=== PATIENT | male | born 1955 | race Caucasian/White ===

== ENCOUNTER 2016-07-07 07:02 | Day surgery (SDC) | payer OTHER ==
[~2016-07-07] VITALS: Ht 175.3 cm; Wt 86.2 kg
[~2016-07-07 07:02] MED LIST: ADULT LOW DOSE81 M1 PO; ALREX 0.2%100 DROP/5 BOTH EYES; Ascorbic Acid,Ester- PO; Aspirin Chewable PO; Bactrim,Septra DS 80 PO; Dulcolax PO; ENDOCET 5-3251 EACH PO; GABAPENTIN300 MG PO; KENALOG,ARISTOC80 GM TP; LEVO-T75 MCG PO; LISINOPRIL-HCT1 EAC3 PO; LOPRESSOR50 MG PO; NORVASC5 M1 PO; Nizoral 2% Cream TP; OLOPATADINE HCL5 ML BOTH EYES; OMEPRAZOLE40 M1 PO; Oyst-Cal D, Oscal W/ PO; PROSTATE MEDICATION; SENOKOT S,PE1 TABLET PO; THERAGRAN1 TABLET PO; THIAMINE,VITAM100 MG PO; TOPROL PO; TOPROL XL100 MG PO; Tylenol Regular Stre PO; ULTRAM50 MG PO; [UNRECOGNIZED DRUG - OTHER] TP
== END 2016-07-07 08:15 | disposition home or self-care (01) ==
LOC: PAIN 07:02 → SDC 07:45 → PAIN 08:15
PROC: 0RJ Upper Joints, Inspection (ICD-10-PCS; principal; 2016-07-07)
DX: M47.814 Spondylosis without myelopathy or radiculopathy, thoracic region (principal); Z53.09 Procedure and treatment not carried out because of other contraindication; I10 Essential (primary) hypertension

== ENCOUNTER 2016-12-11 15:00 | Emergency (ER) | payer OTHER ==
[~2016-12-11] VITALS: Ht 175.3 cm; Wt 91.4 kg
[2016-12-11] MEDS ORDERED: NAPROSYN500 MG PO (17:56)
[2016-12-11 18:15] VITALS: BP 157/81
[2016-12-13] MEDS ORDERED: NAPROSYN500 MG PO (13:25)
[2016-12-13] MEDS ORDERED: COZAAR50 MG PO (13:26)
[2016-12-13] MEDS ORDERED: NORVASC5 MG PO (13:27)
== END 2016-12-11 18:16 | disposition home or self-care (01) ==
LOC: EME 15:00
PROC: 2W38X1Z Immobilization of Right Upper Extremity using Splint (ICD-10-PCS; principal; 2016-12-11)
DX: S52.021A Displaced fracture of olecranon process without intraarticular extension of right ulna, initial encounter for closed fracture (principal); W01.198A Fall on same level from slipping, tripping and stumbling with subsequent striking against other object, initial encounter; Y92.008 Other place in unspecified non-institutional (private) residence as the place of occurrence of the external cause; I10 Essential (primary) hypertension
CPT/HCPCS: 73080; 99281; 99284

== ENCOUNTER 2016-12-14 06:48 | Day surgery (SDC) | payer OTHER ==
[~2016-12-14] VITALS: Ht 175.3 cm; Wt 90.8 kg
[~2016-12-14 06:48] MED LIST changes: +COZAAR50 MG PO; +NAPROSYN500 MG PO; +NORVASC5 MG PO
[2016-12-14 08:15] VITALS: BP 179/86
[2016-12-14 15:32] VITALS: BP 127/70
[2016-12-14 16:32] VITALS: BP 129/71
== END 2016-12-14 16:55 | disposition home or self-care (01) ==
LOC: SDC 06:48
PROC: 0PSK04Z Reposition Right Ulna with Internal Fixation Device, Open Approach (ICD-10-PCS; principal; 2016-12-14)
DX: S52.031A Displaced fracture of olecranon process with intraarticular extension of right ulna, initial encounter for closed fracture (principal); W22.09XA Striking against other stationary object, initial encounter; Y93.01 Activity, walking, marching and hiking; Y92.008 Other place in unspecified non-institutional (private) residence as the place of occurrence of the external cause; I10 Essential (primary) hypertension; E03.9 Hypothyroidism, unspecified; F10.20 Alcohol dependence, uncomplicated; K21.9 Gastro-esophageal reflux disease without esophagitis; Z85.89 Personal history of malignant neoplasm of other organs and systems; Z87.891 Personal history of nicotine dependence
CPT/HCPCS: 73070; 76000; 85730; C1769; J0131; J0690; J1100; J1170; J2250; J3010

== ENCOUNTER 2017-01-23 08:41 | Day surgery (SDC) | payer OTHER ==
[2017-01-23] MEDS ORDERED: GARLIQUE5000 MCG PO (09:08)
== END 2017-01-23 11:04 | disposition home or self-care (01) ==
LOC: PAIN 08:41 → SDC 09:15 → PAIN 11:04
DX: M47.812 Spondylosis without myelopathy or radiculopathy, cervical region (principal); M47.814 Spondylosis without myelopathy or radiculopathy, thoracic region; M51.36 Other intervertebral disc degeneration, lumbar region; F10.20 Alcohol dependence, uncomplicated; Z87.891 Personal history of nicotine dependence; I10 Essential (primary) hypertension; K21.9 Gastro-esophageal reflux disease without esophagitis; E03.9 Hypothyroidism, unspecified; Z88.5 Allergy status to narcotic agent; Z88.8 Allergy status to other drugs, medicaments and biological substances; Z91.018 Allergy to other foods
CPT/HCPCS: J1030; J2250; J3010; S0020

== ENCOUNTER 2017-01-30 08:43 | Day surgery (SDC) | payer OTHER ==
[~2017-01-30] VITALS: Ht 180.3 cm; Wt 92.1 kg
[~2017-01-30 08:43] MED LIST changes: +GARLIQUE5000 MCG PO
== END 2017-01-30 11:20 | disposition home or self-care (01) ==
LOC: PAIN 08:43
DX: M47.812 Spondylosis without myelopathy or radiculopathy, cervical region (principal); M47.814 Spondylosis without myelopathy or radiculopathy, thoracic region; M51.36 Other intervertebral disc degeneration, lumbar region; G89.29 Other chronic pain; Z87.891 Personal history of nicotine dependence; E66.9 Obesity, unspecified; Z68.29 Body mass index [BMI] 29.0-29.9, adult; F10.20 Alcohol dependence, uncomplicated; F41.9 Anxiety disorder, unspecified; I10 Essential (primary) hypertension; Z85.818 Personal history of malignant neoplasm of other sites of lip, oral cavity, and pharynx; Z92.3 Personal history of irradiation
CPT/HCPCS: J1030; J2250; J3010; S0020

== ENCOUNTER 2017-03-13 12:46 | Day surgery (SDC) | payer OTHER ==
[~2017-03-13] VITALS: Ht 185.4 cm; Wt 92.5 kg
[~2017-03-13 12:46] MED LIST changes: +DANDELION ROOT PO; -LEVO-T75 MCG PO; +NORVASC2.5 MG PO; -NORVASC5 MG PO; +SYNTHROID75 MCG PO; +VITAMIN D31000 UNIT PO
[2017-03-13 13:32] VITALS: BP 175/92
[2017-03-13 20:50] VITALS: BP 134/73
[2017-03-13 21:56] VITALS: BP 161/78
== END 2017-03-13 22:25 | disposition home or self-care (01) ==
LOC: SDC 12:46
DX: S52.031K Displaced fracture of olecranon process with intraarticular extension of right ulna, subsequent encounter for closed fracture with nonunion (principal); M96.840 Postprocedural hematoma of a musculoskeletal structure following a musculoskeletal system procedure; I10 Essential (primary) hypertension; E03.9 Hypothyroidism, unspecified; K21.9 Gastro-esophageal reflux disease without esophagitis; F10.20 Alcohol dependence, uncomplicated; W17.89XA Other fall from one level to another, initial encounter; Y93.A1 Activity, exercise machines primarily for cardiorespiratory conditioning; Z85.819 Personal history of malignant neoplasm of unspecified site of lip, oral cavity, and pharynx; Z87.891 Personal history of nicotine dependence
CPT/HCPCS: 73070; 76000; 85730; C1713; G0480; J0330; J0690; J1100; J1170; J1885; J2405; J3010

== ENCOUNTER 2017-04-20 10:39 | Day surgery (SDC) | payer OTHER ==
[~2017-04-20] VITALS: Ht 185.4 cm; Wt 92.5 kg
[~2017-04-20 10:39] MED LIST changes: -NORVASC2.5 MG PO; +NORVASC5 MG PO
== END 2017-04-20 12:20 | disposition home or self-care (01) ==
LOC: PAIN 10:39
PROC: BR141ZZ Fluoroscopy of Cervical Facet Joint(s) using Low Osmolar Contrast (ICD-10-PCS; principal; 2017-04-20)
PROC: 3E0T3TZ Introduction of Destructive Agent into Peripheral Nerves and Plexi, Percutaneous Approach (ICD-10-PCS; principal; 2017-04-20)
DX: M47.812 Spondylosis without myelopathy or radiculopathy, cervical region (principal); G89.29 Other chronic pain; M50.321 Other cervical disc degeneration at C4-C5 level; M79.1 Myalgia; M47.814 Spondylosis without myelopathy or radiculopathy, thoracic region; M51.36 Other intervertebral disc degeneration, lumbar region; I10 Essential (primary) hypertension; E03.9 Hypothyroidism, unspecified; F10.20 Alcohol dependence, uncomplicated; Z85.818 Personal history of malignant neoplasm of other sites of lip, oral cavity, and pharynx; Z87.891 Personal history of nicotine dependence
CPT/HCPCS: J1030; J2250; S0020

== ENCOUNTER 2017-04-27 10:57 | Day surgery (SDC) | payer OTHER ==
[~2017-04-27] VITALS: Ht 180.3 cm; Wt 93.0 kg
== END 2017-04-27 12:45 | disposition home or self-care (01) ==
LOC: PAIN 10:57 → SDC 11:30 → PAIN 11:30
PROC: 3E0T3TZ Introduction of Destructive Agent into Peripheral Nerves and Plexi, Percutaneous Approach (ICD-10-PCS; principal; 2017-04-27)
PROC: BR141ZZ Fluoroscopy of Cervical Facet Joint(s) using Low Osmolar Contrast (ICD-10-PCS; principal; 2017-04-27)
DX: M47.812 Spondylosis without myelopathy or radiculopathy, cervical region (principal); G89.29 Other chronic pain; M54.2 Cervicalgia; I10 Essential (primary) hypertension; M50.30 Other cervical disc degeneration, unspecified cervical region; E78.5 Hyperlipidemia, unspecified; K21.9 Gastro-esophageal reflux disease without esophagitis; G62.9 Polyneuropathy, unspecified; F10.20 Alcohol dependence, uncomplicated; Z87.891 Personal history of nicotine dependence; R73.03 Prediabetes
CPT/HCPCS: J1030; J2250; J3010; S0020

== ENCOUNTER 2017-05-25 23:09 | Emergency (ER) | payer OTHER ==
[~2017-05-25] VITALS: Ht 175.3 cm; Wt 100.0 kg
[2017-05-25 23:16] VITALS: BP 161/92
[2017-05-25 23:39] LABS: HEMATOCRIT 35.5 % (38.0-50.0); HEMOGLOBIN 12.3 G/DL (12.5-16.6); MCH 33.9 PG (29.0-34.0); MCHC 34.6 G/DL (30.0-36.0); MCV 97.8 FL (86-99); PLATELET COUNT 86 K/uL (156-360); RBC DIS.WIDTH-CV 12.5 % (11.8-14.6); RBC DIS.WIDTH-SD 45.1 % (39-53); RED BLOOD COUNT 3.63 M/uL (4.00-5.50); WHITE BLOOD COUNT 4.2 K/uL (4.1-10.2)
[2017-05-25 23:49] LABS: CHLORIDE 93 mEq/L (99-109); POTASSIUM 3.9 mEq/L (3.7-5.4); SODIUM 133 mEq/L (136-147)
[2017-05-25 23:51] LABS: GLUCOSE 120 mg/dL (70-99)
[2017-05-25 23:55] LABS: CREATININE 1.6 mg/dL (0.6-1.3); GFR ESTIMATE (CALCULATED) 47 mL/min/ (58.99-99999)
[2017-05-25 23:56] LABS: UREA NITROGEN (BUN) 16 mg/dL (9-23)
[2017-05-26] MEDS ORDERED: KEFLEX500 MG PO (02:52)
== END 2017-05-26 03:34 | disposition home or self-care (01) ==
LOC: EME 23:09
DX: S91.134A Puncture wound without foreign body of right lesser toe(s) without damage to nail, initial encounter (principal); M19.071 Primary osteoarthritis, right ankle and foot; R93.6 Abnormal findings on diagnostic imaging of limbs; K21.9 Gastro-esophageal reflux disease without esophagitis; N40.0 Benign prostatic hyperplasia without lower urinary tract symptoms; F41.9 Anxiety disorder, unspecified; F32.9 Major depressive disorder, single episode, unspecified; Z87.891 Personal history of nicotine dependence; Z85.9 Personal history of malignant neoplasm, unspecified; Z88.5 Allergy status to narcotic agent
CPT/HCPCS: 73630; 80048; 85027; 99281; 99284